=== PATIENT | male | born 1965 | race Caucasian/White ===

== ENCOUNTER 2019-07-12 19:14 | Observation (INO) | payer SELFPAY ==
[2019-07-12] MEDS ORDERED: Nitroglycerin 0.4 MG TAB 1 EACH ONE (19:46)
[2019-07-12] MEDS ORDERED: Acetaminophen 325 MG TAB PO PRN (22:57)
[2019-07-12] MEDS ORDERED: Ondansetron PF 4 MG/2 ML Vial IVP PRN (22:57)
[2019-07-12] MEDS ORDERED: Nitroglycerin 0.4 MG TAB (25 Tab Bottle) PO PRN (22:57)
[2019-07-12] MEDS ORDERED: hydrALAZINE 20 MG/ML VIAL SLOW IVP PRN (22:57)
[2019-07-12] MEDS ORDERED: Ondansetron ODT 4 MG TAB PO PRN (22:57)
[2019-07-12 23:24] LABS: Troponin I Less than 0.010 ng/mL (< 0.028)
[2019-07-13 01:27] VITALS: BMI 26.6
--- NOTE | 2019-07-13 01:38 | HP ---
PRIMARY CARE PHYSICIAN: The patient currently does not have a primary care physician. CHIEF COMPLAINT: Pain in my back and chest. HISTORY OF PRESENT ILLNESS: Mr. Josue is a pleasant 53-year-old gentleman, who has a history of hypertension, elevated cholesterol and coronary artery disease. He was in his usual state of health until yesterday evening at around 9:30 p.m. He was lying in bed and started noticing pain in both sides of his back that it was kind of bandlike and went around to the chest. He described it as a sharp pain and "takes his breath away." He says it was worse with certain types of motions, which caused it to happen. There was no nausea, no vomiting, but he rated it about 8/10, and he also was feeling this tightness in his chest. He has a history of coronary artery disease and has had several stents placed in the past, the most recent was about nine months ago, he says in [place], [place]. He admits that he has not been taking his aspirin and Plavix for well about a year and states that he has been unable to afford it. He says that the pain however he is experiencing now is not exactly like he experienced before. When he had the stents placed, the pain was more in the left shoulder and upper chest area, and he was having nausea associated with it at that time. He says up until now he has been active. He says that he can walk and was lifting some heavy furniture at a fair a couple of days ago, but was not having any problems with that. REVIEW OF SYSTEMS: All systems were reviewed and are negative except for that mentioned in history of present illness. PAST MEDICAL HISTORY: Significant for hypertension, hyperlipidemia, coronary artery disease, and history of [place] in 2009. PAST SURGICAL HISTORY: He has had five coronary stents placed, left shoulder surgery as well as left leg. ALLERGIES: NO KNOWN DRUG ALLERGIES. SOCIAL HISTORY: He is a former smoker. He quit about 3 months ago. He smokes about a pack per day for 30 years prior to that. Occasional alcohol use. He is single, has 4 children. FAMILY HISTORY: Significant for heart disease in his mom and dad. His daughter has Cbpxs-Zpxhapvgs-Enqly syndrome. MEDICATIONS: Currently, he is not taking any. Prior to about several months to year ago, he was on: 1. Aspirin. 2. Plavix. 3. Metoprolol. 4. Statin. PHYSICAL EXAMINATION: GENERAL: He is alert and oriented. He appears to be in no acute distress. He is well developed and well nourished. VITAL SIGNS: Blood pressure was 142/83, heart rate 70, respiratory rate is 16, and he is afebrile. HEENT: Pupils are equal, round, and reactive. Extraocular muscles are intact. His sclerae anicteric. Throat, there is no erythema and there are no exudates. NECK: No adenopathy. No bruits. LUNGS: Clear to auscultation. He had an occasional rhonchi, but it cleared with deep breathing. CARDIOVASCULAR: He has a normal S1, S2. I did not appreciate an S3 or S4. No murmurs, clicks, or rubs. ABDOMEN: Obese. It is soft, nontender, and nondistended. Positive for bowel sounds. No rebound. No guarding. No organomegaly. EXTREMITIES: There is no clubbing or cyanosis. No edema. No calf tenderness. No joint effusions. NEUROLOGIC: Cranial nerves 2 through 12 are grossly intact. His muscle strength is 5/5 in both upper and lower extremities. SKIN AND INTEGUMENT: No skin changes. No rash. LABORATORY DATA: The lab results from [facility] in [place] were reviewed. He had a troponin of 0.02. His urinalysis was negative. He had a glucose of 117, sodium 138, potassium 4.0, chloride is 105, CO2 is 27, BUN of 12, creatinine 0.93. White blood cell count 6.4, hemoglobin 16.2, hematocrit is 47.5, and platelet count is 210. He had a CT angiogram of the chest, which was negative for pulmonary embolism or dissection. EKG was sinus rhythm and it is a right bundle-branch block. The patient was given a total of 8 mg of morphine and 15 mg of Toradol in the ER there, as well as Zofran. ASSESSMENT: This is a 53-year-old gentleman, who presents with atypical chest and back pain. He has a negative CTA for dissection, which would have been my concern as well and pulmonary embolism has also been ruled out. He has been medically noncompliant with history of stents, although the pain description is atypical. It seems reasonable to place him in observation and get a nuclear stress test. Therefore, this is what we will do. We will continue to trend his cardiac enzymes, get an exercise Cardiolite if he can tolerate this. Check his lipid panel and further assess his risk. 1. Hypertension. We will start him on low dose of metoprolol. 2. Dyslipidemia. We will be checking his lipid panel and we can start him on some things such as simvastatin, which should be easily affordable. Job ID: [id number]
[2019-07-13 02:43] LABS: Troponin I Less than 0.010 ng/mL (< 0.028)
[2019-07-13 04:52] LABS: #Eosinphils 0.1 thou/uL (0.0-0.7); #Lymphocytes 0.7 thou/uL (1.20-3.40); #Monocytes 0.6 thou/uL (0.11-0.59); #Neutrophils 5.6 thou/uL (1.40-6.50); %Basophils 0.2 % (0.0-1.0); %Eosinophils 1.7 % (0.0-10.0); %Lymphocytes 9.9 % (21.0-51.0); %Monocytes 8.6 % (0.0-10.0); %Neutrophils 79.7 % (42.0-75.0); Hemoglobin 15.4 g/dL (14.0-18.0); Mean Corpuscular HGB CONC 35.2 g/dL (32.0-36.0); Mean Corpuscular Hemoglobin 36.1 pg (27.0-31.0); Mean Platelet Volume 6.9 fL (7.4-10.4); Platelet Count 185 thou/uL (130-400); RBC Distribution Width 11.7 % (11.5-14.5); Red Blood Cell (RBC) Count 4.27 mill/uL (4.70-6.10)
[2019-07-13 05:08] LABS: Anion Gap 11 mmol/L (10-20); BUN (Urea Nitrogen) 16 mg/dL (8.4-25.7); Calc. Creatinine Clearance 160 mL/min (70-130); Calcium 8.7 mg/dL (7.8-10.44); Carbon Dioxide 22 mmol/L (22-29); Cardiac Risk 5.3 (Less than 4.5); Chloride 103 mmol/L (98-107); Cholesterol 180 mg/dl (< 200 Desired); Estimated GFR-MDRD Greater than 90; Glucose 102 mg/dL (70-105); HDL Cholesterol 34 mg/dL (>60 Neg Risk); LDL Cholesterol, Calculated 113 mg/dL; Potassium 4.1 mmol/L (3.5-5.1); Sodium 132 mmol/L (136-145); Triglycerides 167 mg/dL (Less than 150)
[2019-07-13] MEDS: Nitroglycerin 2% Ointment 1 INCH/1 GM Packet TOP SCH ×2 (06:04→14:19)
[2019-07-13] MEDS ORDERED: Regadenoson 0.4 MG/5 ML SYRINGE ONE (08:40)
[2019-07-13] MEDS ORDERED: Famotidine 20 MG TAB PO SCH (09:00)
[2019-07-13] MEDS ORDERED: Enoxaparin Sodium 40 MG/0.4 ML SYRINGE SC SCH (09:00)
[2019-07-13] MEDS ORDERED: FLU VACC QS2019-20(6MOS UP)/PF 60 MCG/0.5 ML SYRINGE IM ONE (09:00)
[2019-07-13] MEDS ORDERED: Metoprolol Tartrate 25 MG TAB PO SCH (09:00)
[2019-07-13] MEDS ORDERED: Clopidogrel Bisulfate 75 MG TAB PO SCH (09:00)
[2019-07-13 11:32] VITALS: TEMP 97.9
--- NOTE | 2019-07-13 13:11 | NM ---
CARDIAC SPECT: CLINICAL HISTORY: 53-year-old male with chest pain, coronary artery disease, stent, hypertension, dyslipidemia, smoker. TECHNIQUE: A myocardial perfusion scan was performed using the single isotope one day protocol with technetium-9 9m sestamibi. 11 mCi were injected intravenously for the rest exam followed by 33 mCi for the stress exam. Pharmacologic stress with Lexiscan was monitored and interpreted by Dr. Gamboa. FINDINGS: Fairly homogeneous tracer distribution is seen in the myocardial segments on stress and rest images w ithout fixed or reversible defects. GATED SPECT LVEF: 78%. WALL MOTION EXAM: Normal. IMPRESSION: Normal myocardial perfusion scan. POS: [facility]
--- NOTE | 2019-07-13 14:27 | EKG ---
Test Reason : STAT Blood Pressure : / mmHG Vent. Rate : 106 BPM Atrial Rate : 106 BPM P-R Int : 152 ms QRS Dur : 120 ms QT Int : 360 ms P-R-T Axes : 052 237 060 degrees QTc Int : 478 ms Sinus tachycardia Pulmonary disease pattern Right bundle branch block Abnormal ECG When compared with ECG of 07-OCT-1996 12:58, Vent. rate has increased BY 35 BPM Right bundle branch block is now Present Confirmed by ERIC ZENDEJAS, SGary ([id number]) on 07/13/2019 2:26:48 PM Referred By: [facility] Confirmed By:DR. Kavon REYES MD
[2019-07-13 15:42] VITALS: BP 109/75
--- NOTE | 2019-07-13 18:22 | DIS ---
DATE OF ADMISSION: 07/12/2019 DATE OF DISCHARGE: 07/13/2019 DISCHARGE DISPOSITION: Home. PRIMARY DISCHARGE DIAGNOSIS: Chest pain which was atypical, is noncardiac. SECONDARY DISCHARGE DIAGNOSES: Hypertension, dyslipidemia, history of coronary artery disease per patient. PROCEDURES DONE DURING HOSPITALIZATION: Nuclear stress test done showed no reversible ischemia. Wall motion was normal. Ejection fraction was around 78%. H and H 15 and 43, platelet count 185. MCV is 103. Troponin x3 negative. Total cholesterol 180, LDL 113, triglycerides 167, HDL 34. DISCHARGE PLAN: The patient to either followup at [facility] or [facility] in 1 week. He is actually from [facility] and has been in this area for the last 4 months and does not have a primary care physician locally. BRIEF COURSE DURING HOSPITALIZATION: The patient initially came in with complaints of bandlike chest pain which was radiating to the back. In view of this history and prior history of coronary artery disease, the patient was placed under observation on telemetry. He initially presented to [facility] in [place], where he had a CT angio chest done, which did not reveal any PE or dissection. His EKG did not show any acute ST-T wave changes, but had RBBB seen. Troponin trending was all within normal limits x3. Nuclear stress test done showed no reversible ischemia. He remained hemodynamically stable with no further episodes of chest discomfort. He is hemodynamically stable, eating well prior to discharge. Please note, I have seen and examined the patient on the day of discharge. Job ID: [id number]
[2019-07-13] MEDS ORDERED: Simvastatin 20 MG TAB PO SCH (21:00)
--- NOTE | 2019-07-16 14:50 | EKG ---
Test Reason : Blood Pressure : / mmHG Vent. Rate : 084 BPM Atrial Rate : 084 BPM P-R Int : 146 ms QRS Dur : 120 ms QT Int : 392 ms P-R-T Axes : 059 -83 070 degrees QTc Int : 463 ms Normal sinus rhythm Left axis deviation Right bundle branch block Abnormal ECG Confirmed by INDIA SILVER ([id number]), editorial intern CONRAD SEXTON ([id number]) on 07/16/2019 2:50:06 PM Referred By: Confirmed By:INDIA Camarillo
== END 2019-07-13 17:20 | disposition home or self-care (01) ==
LOC: ERS 19:14 → ERHOLD 21:16 → 2NO 07-13 01:07
PROVIDERS: ADMIT Internal Medicine; ATTEND Internal Medicine
DX: R07.89 Other chest pain (principal); I10 Essential (primary) hypertension; I25.10 Atherosclerotic heart disease of native coronary artery without angina pectoris; E78.00 Pure hypercholesterolemia, unspecified; E78.5 Hyperlipidemia, unspecified; I25.2 Old myocardial infarction; Z79.82 Long term (current) use of aspirin; Z79.899 Other long term (current) drug therapy; Z87.891 Personal history of nicotine dependence; Z95.5 Presence of coronary angioplasty implant and graft
CPT/HCPCS: 36415; 78452; 80048; 80061; 84484; 85025; 90471; 90686; 93005; 93010; 93017; 94760; 96372; A9500; G0008; G0378; J1650; J2785